=== PATIENT | male | born 1995 | race Caucasian/White ===

== ENCOUNTER 2024-02-09 14:13 | Emergency (ER) | payer OTHER, SELFPAY ==
[2024-02-09 14:48] VITALS: BP 162/79; PULSE 79; RESP 18; TEMP 36.7; O2SAT 99
--- NOTE | 2024-02-09 15:06 | XRR_ITS ---
PROCEDURE INFORMATION: Exam: XR Right Finger(s) Exam date and time: 02/09/2024 3:36 PM Age: 29 years old Clinical indication: Injury or trauma; Other: Laceration; Right; Index finger; Additional info: Laceration/trauma TECHNIQUE: Imaging protocol: Radiologic exam of the right fingers. Views: Minimum 2 views. COMPARISON: No relevant prior studies available. FINDINGS: Bones/joints: Normal. Soft tissues: Soft tissue lacerations. No radiopaque foreign body identified. XR/XR finger RT min 2V 14993 IMPRESSION: Soft tissue lacerations. Otherwise, unremarkable.
--- NOTE | 2024-02-09 15:07 | ED_ITS ---
HPI - Wound/Laceration General: Chief Complaint: Wound/Laceration Stated Complaint: right hand index finger lac Time Seen by Provider: 02/09/24 14:53 Source: patient Mode of arrival: ambulatory Limitations: no limitations History of Present Illness: Patient is a 29-year-old male here for evaluation of laceration to his right index finger that he sustained just prior to arrival after he was grabbing some type of metal tab/band off a pallet. Last tetanus was probably 12 years or so ago. Onset (ago): hour(s) Extremity Location: Right: hand (R index finger) Place: home Patient tetanus UTD: No Context: accidental Associated symptoms: Reports no associated symptoms Treatments prior to arrival: bandage Review of Systems Musc: Reports: extremity pain (R index finger) Skin/Breast: Reports: other (laceration R index finger) Physical Exam Const: COMMON NORMALS: no acute distress, average body habitus, patient oriented x3, no limitations, healthy appearing, alert and well nourished Extremity: COMMON NORMALS: full ROM and capillary refill normal GENERAL: Yes normal exam except as noted RIGHT UPPER EXTREMITY: Yes hand & digits (1.5 cm laceration volar index finger overlying middle phalanx) Right hand and digits: Yes ROM exam (normal), Yes neurovascular exam (normal) and Yes tendon ex am (normal) Neuro: COMMON NORMALS: patient oriented x3, moves all extremities, no focal motor deficits and no sensory deficits noted SENSORIUM/ORIENTATION: Yes alert Skin: TRAUMA: laceration Procedures Laceration Laceration 1: Site: hand (index finger) Side (If applicable): right Size (cm): 1.5 Description: linear Depth: simple, single layer Local Anesthetic: lidocaine 2% (digital block) Amount of anesthesia used (mL): 3.0 Pre-repair: wound explored and irrigated extensively Skin layer closed with: nylon Size (cm): 4-0 Number of sutures: 4 Technique: simple, interrupted Course Vital Signs: Vital signs: Vital Signs Temperature 98.1 F 02/09/24 14:48 Pulse Rate 79 02/09/24 14:48 Respiratory Rate 18 02/09/24 14:48 Blood Pressure 162/79 02/09/24 14:48 Pulse Oximetry 99 02/09/24 14:48 Oxygen Delivery Me thod Room Air 02/09/24 14:48 MDM - Wound/Laceration Medical Decision Making XR negative for bony injury. No tendon involvement clinically. Wound was repaired as documented after copious irrigation. Wound care/infection prec autions discussed. Differential Diagnosis Likely laceration Lab Data Radiology Impressions Finger X-Ray 02/09/24 15:06 IMPRESSION: Soft tissue lacerations. Otherwise, unremarkable. All radiology interpretation(s) finalized by discharge Discharge Plan Discharge Patient Disposition: Home Clinical Impression: Laceration of right index finger Condition: Stable Prescriptions: No Action cyclobenzaprine 5 mg tablet 5 mg PO TID PRN (Reason: muscle spasm) Qty: 10 0RF Discharge Orders: Discharge ED (Routine); Ordered 02/09/24 Ordered By: Charlee Hernandez Patient Instructions: Care For Your Stitches (DC), Laceration (DC) Activity Restrictions/Additional Instructions: Keep wound/laceration clean with warm soap and water twice daily. Monitor for signs of infection such as redness, swelling, increased pain, or drainage. Please seek medical re-evaluation if these occur. If you received sutures today these will need to be removed (unless you were told by the provider that they are absorbable). The provider should have discussed with you the length of time until removal-7 DAYS. Coding Level of Care Code ED Nurses Educator for [place] [facility]
[2024-02-09] MEDS: tetanus-dipt-pertussis 0.5 mL SDV IM (15:25)
== END 2024-02-09 16:24 | disposition home or self-care (01) ==
PROVIDERS: Emergency Provider Physician Assistant
DX: S61.210A Laceration without foreign body of right index finger without damage to nail, initial encounter (principal); W26.8XXA Contact with other sharp object(s), not elsewhere classified, initial encounter; Z23 Encounter for immunization
CPT/HCPCS: 12001; 73140; 90471; 90715; 99283